=== PATIENT | female | born 1985 | race Caucasian/White ===

== ENCOUNTER → 2020-05-21 11:13 | Outpatient (CLI) | payer OTHER, SELFPAY ==
--- NOTE | ~2020-05-21 | XR_ITS ---
XR wrist LT min 3V DATE: 05/21/2020 11:30 INDICATION: Left wrist generalized pain for several months TECHNIQUE: 4 views COMPARISON: None FINDINGS: No fracture or dislocation, periosteal reaction or bone destruction. Joint spaces are prese rved. No erosive change or chondrocalcinosis. IMPRESSION: Negative Reviewed, dictated and finalized at location A. SERVICE AMBASSADOR IMPRESSION: Negative
== END ==
PROVIDERS: PCP Family Medicine; Visit Provider Family Medicine
DX: M25.532 Pain in left wrist (principal)
CPT/HCPCS: 73110

== ENCOUNTER 2020-06-28 11:10 | Outpatient (NON) | payer OTHER, SELFPAY ==
[2020-06-28 22:42] LABS: SARS-CoV-2 RNA PCR Negative
== END 2020-06-28 11:11 ==
LOC: ANHCOVIDDT 11:11
PROVIDERS: PCP Family Medicine; Visit Provider Family Medicine
DX: Z20.822 Contact with and (suspected) exposure to COVID-19 (principal); B34.9 Viral infection, unspecified
CPT/HCPCS: C9803; U0003; U0005

== ENCOUNTER 2020-09-12 10:46 | Observation (INO) | payer OTHER, SELFPAY ==
--- NOTE | ~2020-09-12 | CT_ITS ---
EXAMINATION: CT abdomen pelvis wo con DATE: 09/12/2020 11:59 INDICATION: Abdomen pain TECHNIQUE: Computed tomography (CT) of the abdomen and pelvis was performed without intravenous contr ast. The dose-length product was 212.09 mGy-cm. Automated exposure control and iterative reconstructi on technique were employed. COMPARISON: None. FINDINGS: Lung bases are unremarkable. Heart size normal. No significant pleural or pericardial effus ion. No significant vascular abnormality. No lymphadenopathy. The liver, spleen, pancreas, adrenal glands and kidneys are unremarkable. No renal stones or hydronep hrosis. Nonobstructive bowel gas pattern. The appendix is not positively visualized. There is no per icecal inflammatory change to suggest appendicitis. No acute osseous abnormality. No free air or free fluid. No abnormal pelvic masses or fluid collections. IMPRESSION: 1. No acute abdominal abnormality. Reviewed, dictated and finalized at location B.
[2020-09-12 10:58] VITALS: BP 117/60; PULSE 87; RESP 18; TEMP 36.4; O2SAT 100
[2020-09-12 11:13] LABS: Basophils Absolute Auto 0.1 K/mm3 (0.0-0.1); Basophils Percent Auto 0.3 % (0.2-1.2); Hematocrit 48.9 % (37.0-47.0); Immature Granulocyte Absolute 0.06 K/mm3 (0.00-0.031); Immature Granulocyte Percent A 0.4 % (0-0.5); Lymphocytes Absolute Auto 0.91 K/mm3 (0.9-3.2); Lymphocytes Percent Auto 5.9 % (18.3-44.2); Mean Corpuscular HGB Conc 34.8 g/dl (32-36); Mean Corpuscular Hemoglobin 32.2 pg (26-34); Mean Corpuscular Volume 92.6 fl (80-100); Monocytes Percent Auto 6.5 % (2.6-8.5); Neutrophils Absolute Auto 13.3 K/mm3 (1.3-6.7); Neutrophils Percent Auto 86.9 % (45.5-73.1); Platelet Count Result 385 k/mm3 (150-375); Red Blood Count 5.28 M/mm3 (4.2-5.4); Red Cell Distribution Width 12.8 % (11.5-14.5); White Blood Count 15.3 K/mm3 (4.5-10.0)
--- NOTE | 2020-09-12 11:15 | ED.ARRPALP ---
HPI - Arrhythmia/Palpitations General Chief Complaint: Nausea/Vomiting/Diarrhea Stated Complaint: N/V/D Time Seen by Provider: 09/12/20 10:56 Source: RN notes reviewed History of Present Illness HPI narrative: Patient presents to emergency department from home for nausea vomiting. Patient states that she has been having persistent nausea and vomiting since approximately 1030 yesterday morning states is associated with abdominal pain described as cramping in the upper abdomen she denies any chest pain shortness of breath diarrhea or any other symptoms. States she had a temperature up to 100.1 at home patient did states she took Motrin this morning Related Data Allergies Allergy/AdvReac Type Severity Reaction Status Date / Time No Known Allergies Allergy Verified 09/12/20 11:06 Review of Systems Review of Systems: Narrative: Gen.: Reports fever denies chills Eyes: Denies eye pain or visual change ENT: Denies congestion Respiratory: Denies shortness of breath or cough CV: Denies chest pain or palpitations GI: See HPI denies burning, urgency, frequency or hematuria Musculoskeletal: Denies back pain or muscle pain Neuro: Denies numbness, tingling, weakness or focal weakness Skin: Denies rash Except as documented, all other systems reviewed and negative [facility] Past Medical History Medical History (Updated 09/12/20 @ 13:40 by Hemanth Wagner DO) Psoriasis Surgical History Surgical History (Updated 09/12/20 @ 13:33 by Anna Deleon PA-C) History of wisdom tooth extraction Family History Family History (Updated 09/12/20 @ 13:34 by Anna Deleon PA-C) Grandparent Family history of malignant neoplasm of breast Family history of malignant neoplasm of ovary Diabetes mellitus Mother Diabetes mellitus Social History Social History (Updated 09/12/20 @ 13:34 by Anna Deleon PA-C) Social History: The patient lives in [place]. She is a smoker. Denies alcohol illicit substance abuse. Exam Narrative: Exam Narrative: APPEARANCE: No acute distress, nontoxic, resting in bed HEENT: Normocephalic, atraumatic, OMM RESPIRATORY: No respiratory distress, clear to auscultation bilaterally with no rhonchi wheezing or rales CARDIOVASCULAR: RRR s murmur ABDOMINAL: Soft nondistended tender palpation epigastric right upper quadrant left lower quadrant no tenderness right lower quadrant left lower quadrant no rebound or guarding MUSCULOSKELETAl: Moves all extremities. No clubbing, cyanosis or edema. NEURO: Awake and alert. Following commands, speech normal, no focal deficits SKIN:: Warm, dry. Normal Color PSYCHIATRIC: Normal affect/mood Course Course Emergency Course: Called discussed with TAMARA Castillo for Dr. Estevez presentation work-up agrees with admission at this time Discussed with patient and family results of workup and diagnosis. Discussed need for admission. Patient and family understand and agree to current treatment plan Vital Signs Vital signs: Vital Signs Temperature 97.6 F 09/12/20 10:58 Pulse Rate 87 09/12/20 10:58 Respiratory Rate 18 09/12/20 10:58 Blood Pressure 117/60 09/12/20 10:58 Pulse Oximetry 100 09/12/20 10:58 Temperature 97.6 F 09/12/20 10:58 Pulse Rate 87 09/12/20 10:58 Respiratory Rate 18 09/12/20 10:58 Blood Pressure 117/60 09/12/20 10:58 Pulse Oximetry 100 09/12/20 10:58 MDM - Arrhythmia/Palpitations Lab Data Result diagrams: 09/12/20 11:07 09/12/20 11:07 Labs: Lab Results 09/12/20 09/12/20 09/12/20 Range/Units 11:07 11:07 11:34 WBC 15.3 H (4.5-10.0) K/mm3 RBC 5.28 (4.2-5.4) M/mm3 Hgb 17.0 H (12.0-15.0) g/dL Hct 48.9 H (37.0-47.0) % MCV 92.6 (80-100) fl MCH 32.2 (26-34) pg MCHC 34.8 (32-36) g/dl RDW 12.8 (11.5-14.5) % Plt Count 385 H (150-375) k/mm3 MPV 9.0 (7.4-10.4) fl Immature Gran % (Auto) 0.4 (0-0.5) % Neut % (Auto) 86.9 H
[2020-09-12 11:25] LABS: Alanine Aminotransferase 18 U/L (4-35); Albumin Level 5.7 g/dL (3.5-5.1); Alkaline Phosphatase 60 U/L (38-126); Anion Gap 20 mmol/L (8-16); Aspartate Amino Transferase 28 U/L (14-36); Bilirubin,Total 0.6 mg/dL (0.2-1.3); Blood Urea Nitrogen 37 mg/dL (7-17); Calcium 10.4 mg/dL (8.4-10.2); Carbon Dioxide 20 mmol/L (22-30); Chloride 99 mmol/L (98-107); Estimated CRCL calculation 32 ml/min; Estimated Glomerular Filt Rate 27; Glucose 127 mg/dL (65-105); Lipase 20 U/L (23-300); Potassium 4.6 mmol/L (3.4-5.0); Sodium 139 mmol/L (137-145)
[2020-09-12] MEDS: FAMOTIDINE 20 MG/2 ML VIAL IV PUSH ×2 (11:36→21:49)
[2020-09-12] MEDS: ONDANSETRON INJ 4 MG/2 ML VIAL IV PUSH (11:41)
[2020-09-12] MEDS: SODIUM CHLORIDE 0.9% IV 1,000 ML 999 ML IV CONT ×2 (11:42→13:43)
[2020-09-12 11:48] LABS: Add Urine Microscopic? YES; Appearance Urine Cloudy (Clear); Bacteria Urine Trace /hpf; Bilirubin Urine Negative (Negative); Blood Urine 2+ (Negative); Color Urine Amber (Yellow); Glucose Urine UA Negative (Negative); Hyaline Casts Urine 50+ /lpf; Ketones Urine Negative (Negative); Leukocyte Esterase Ur Negative LEU/UL (Negative); Mucus Urine Moderate /lpf; Nitrate Urine Negative (Negative); Protein Urine 2+ mg/dL (Negative); RBC Urine 21-50 /hpf (0-2); Specific Grav Ur 1.018 (1.001-1.035); Squamous Epithelial Cell Urine Many /hpf (Few); Urobilinogen Urine Negative mg/dL (<2.0)
[2020-09-12 13:55] VITALS: BP 132/78; PULSE 76; RESP 18; O2SAT 99
--- NOTE | 2020-09-12 14:42 | ADMGEN ---
This patient, Yojana John, was admitted to [facility] Surg Room 313-01. Patient/family oriented to hospital policies and general routines including ID bracelet, bed and alarms, visiting hours, pain management, procedures, bathroom and other care routines, personal items, smoking policy, room service/diet, and visiting hours. Information on how to activate the Rapid Response Team has been discussed. Patient/Family are encouraged to report perceived risks to care and to ask questions if they do not understand what they are told or what they should do.
[2020-09-12 14:45] VITALS: BP 114/66; PULSE 67; RESP 20; TEMP 36.9; O2SAT 100
[2020-09-12] MEDS: SODIUM CHLORIDE 0.9% IV 1,000 ML 125 ML IV CONT ×2 (15:10→21:49)
--- NOTE | 2020-09-12 16:30 | PM.IMHP ---
H&P: HPI History of Present Illness Date/Time: 09/12/20 16:30 Chief Complaint: Nausea, vomiting, diarrhea. Narrative: This is a previously healthy 34-year-old female who presented to the emergency department earlier today via private vehicle from home with complaints of nausea, vomiting, and diarrhea. Yesterday morning, not long after eating breakfast, her stomach started to ?gurgle? followed by profuse, frequent loose stools. Shortly thereafter she developed feelings of indigestion as well as severe nausea and emesis on an hourly basis. Her vomiting and diarrhea have slowed down today, but she continues to be nauseated with dry heaves. She also feels dehydrated and reports diffuse muscle cramps as well as generalized weakness. In the emergency department she was found to be profoundly dehydrated on labs with evidence of acute kidney injury and she is being admitted in this setting. She denies recent travel, sick contacts, and recent antibiotic use. No hematemesis, melena, or hematochezia. No significant NSAID use. At the time my evaluation she feels much better after receiving antiemetics and IV fluids. Review of Systems Review of Systems: Narrative: Twelve systems were reviewed with pertinent positives and negatives as per HPI. It sounds as though she had a vagal response earlier this morning with clamminess, dizziness, nausea, weakness, and lightheadedness. She denies sinus congestion, rhinorrhea, otalgia, and odynophagia. No chest pain or shortness of breath. No cough. Denies dysuria and other UTI symptoms. Last menstrual period was approximately 3 weeks ago. Except as documented, all other systems were reviewed and are negative. [facility] Past Medical History Medical History Psoriasis Surgical History Surgical History History of wisdom tooth extraction Family History Family History Grandparent Family history of malignant neoplasm of ovary Diabetes mellitus Family history of malignant neoplasm of breast Mother Diabetes mellitus Other Heart attack Social History Social History (Updated 09/12/20 @ 18:11 by Anna Deleon PA-C) Social History: The patient lives in [place] with her fiance and their 2 children. 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 Smokes approximately 10 cigarettes per day. Consumes about a 12 pack of beer per week. No illicit substance use. She designates her mother and fijairoe as her surrogate decision makers and wishes to be a full code. Sexual Orientation (if Verbalized by the Patient): Straight or Heterosexual Meds Home Medications and Allergies Home Medications Medication Instructions Recorded Confirmed Type nicotine [Nicoderm CQ] 14 mg TRANSDERMAL DAILY 09/12/20 09/12/20 History terbinafine HCl 250 mg PO DAILY 09/12/20 09/12/20 History triamcinolone acetonide 0.1 applic TOPICAL DAILY 09/12/20 09/12/20 History Allergies Allergy/AdvReac Type Severity Reaction Status Date / Time No Known Allergies Allergy Verified 09/12/20 14:55 Vital Signs Vital Signs - 24 hr 09/12/20 10:58 Temperature 97.6 F Pulse Rate 87 Respiratory Rate 18 Blood Pressure 117/60 Pulse Oximetry 100 Exam Narrative: Exam Narrative: General: Well-developed female sitting up in bed in no acute distress. Weight: 58 kilograms. BMI: 20.0. HEENT: PERRL, EOMI. Sclerae anicteric. Tacky mucous membranes. Neck: Supple. Respiratory: Lungs are clear to auscultation bilaterally. Cardiovascular: Regular rate and rhythm with S1-S2. Gastrointestinal: Abdomen is soft and nondistended with positive bowel sounds. She is slightly tender to palpation in the mid and lower abdomen. No voluntary guarding or rebound tenderness. Skin: Warm and dry. No rash or lesions on limited exam. Extrem
[2020-09-12 18:52] LABS: Anion Gap 11 mmol/L (8-16); Blood Urea Nitrogen 28 mg/dL (7-17); CRP 4.3 mg/dL (<1.0); Calcium 8.7 mg/dL (8.4-10.2); Carbon Dioxide 22 mmol/L (22-30); Chloride 104 mmol/L (98-107); Creatine Kinase 55 U/L (30-135); Estimated CRCL calculation 59 ml/min; Estimated Glomerular Filt Rate 57; Glucose 102 mg/dL (65-105); Potassium 3.5 mmol/L (3.4-5.0); Sodium 137 mmol/L (137-145)
[2020-09-12 21:47] VITALS: BP 109/59; PULSE 74; RESP 18; TEMP 36.7; O2SAT 98
[2020-09-13 05:44] VITALS: BP 103/66; PULSE 66; RESP 18; TEMP 36.4; O2SAT 98
[2020-09-13] MEDS: SODIUM CHLORIDE 0.9% IV 1,000 ML 100 ML IV CONT (05:48)
[2020-09-13 06:09] LABS: Basophils Absolute Auto 0.1 K/mm3 (0.0-0.1); Basophils Percent Auto 0.8 % (0.2-1.2); Eosinophils Absolute Auto 0.2 K/mm3 (0-0.3); Eosinophils Percent Auto 2.7 % (0-4.4); Hematocrit 36.5 % (37.0-47.0); Immature Granulocyte Absolute 0.02 K/mm3 (0.00-0.031); Immature Granulocyte Percent A 0.3 % (0-0.5); Lymphocytes Absolute Auto 2.03 K/mm3 (0.9-3.2); Lymphocytes Percent Auto 27.5 % (18.3-44.2); Mean Corpuscular HGB Conc 32.9 g/dl (32-36); Mean Corpuscular Hemoglobin 31.2 pg (26-34); Mean Corpuscular Volume 94.8 fl (80-100); Mean Platelet Volume 9.3 fl (7.4-10.4); Monocytes Absolute Auto 0.9 K/mm3 (0.1-0.6); Monocytes Percent Auto 11.9 % (2.6-8.5); Neutrophils Absolute Auto 4.2 K/mm3 (1.3-6.7); Neutrophils Percent Auto 56.8 % (45.5-73.1); Platelet Count Result 243 k/mm3 (150-375); Red Blood Count 3.85 M/mm3 (4.2-5.4); White Blood Count 7.4 K/mm3 (4.5-10.0)
[2020-09-13 06:38] LABS: Alanine Aminotransferase 12 U/L (4-35); Albumin Level 3.6 g/dL (3.5-5.1); Alkaline Phosphatase 33 U/L (38-126); Anion Gap 5 mmol/L (8-16); Aspartate Amino Transferase 21 U/L (14-36); Bilirubin,Total 0.2 mg/dL (0.2-1.3); Blood Urea Nitrogen 13 mg/dL (7-17); Calcium 7.9 mg/dL (8.4-10.2); Carbon Dioxide 24 mmol/L (22-30); Chloride 109 mmol/L (98-107); Estimated CRCL calculation 90 ml/min; Estimated Glomerular Filt Rate > 60; Glucose 99 mg/dL (65-105); Potassium 3.8 mmol/L (3.4-5.0); Sodium 138 mmol/L (137-145)
[2020-09-13] MEDS: FAMOTIDINE 20 MG/2 ML VIAL IV PUSH (08:02)
--- NOTE | 2020-09-13 09:19 | PM.DS ---
DS: Admitting Diagnosis Admitting Diagnosis Admitting Diagnosis: Chief Complaint: Nausea, vomiting, diarrhea. DS: Discharge Diagnosis Discharge Diagnosis (1) Acute kidney injury: Code(s): N17.9 - Acute kidney failure, unspecified Status: Acute Assessment and Plan: Due to profound dehydration from volume loss. Continue judicious IV fluid rehydration. Repeat renal function in a.m. (2) Dehydration: Code(s): E86.0 - Dehydration Status: Acute Assessment and Plan: Due to volume loss from vomiting and diarrhea. IV fluid rehydration as detailed above. (3) Viral gastroenteritis: Code(s): A08.4 - Viral intestinal infection, unspecified Status: Acute Assessment and Plan: Symptoms consistent with a probable viral gastroenteritis. Supportive care including IV fluid rehydration antiemetics. DS: Summary Hospital Course Reason for hospitalization: Chief Complaint: Nausea, vomiting, diarrhea. Narrative: This is a previously healthy 34-year-old female who presented to the emergency department earlier today via private vehicle from home with complaints of nausea, vomiting, and diarrhea. Yesterday morning, not long after eating breakfast, her stomach started to ?gurgle? followed by profuse, frequent loose stools. Shortly thereafter she developed feelings of indigestion as well as severe nausea and emesis on an hourly basis. Her vomiting and diarrhea have slowed down today, but she continues to be nauseated with dry heaves. She also feels dehydrated and reports diffuse muscle cramps as well as generalized weakness. In the emergency department she was found to be profoundly dehydrated on labs with evidence of acute kidney injury and she is being admitted in this setting. She denies recent travel, sick contacts, and recent antibiotic use. No hematemesis, melena, or hematochezia. No significant NSAID use. At the time my evaluation she feels much better after receiving antiemetics and IV fluids. Hospital Course: Patient presented with nausea or vomiting and diarrhea symptoms have resolved patient is able to tolerate her diet clinically stable will discharge the patient home today Status at Discharge Functional status at discharge: independent ambulation Overall status at discharge: patient is back to baseline Time Spent with Patient Time attestation: Total time spent providing and/or coordinating discharge services: Patient was seen and examined at the time of the discharge Condition at discharge is stable Code status: Full code. Time spent preparing discharge summary, discharge medications, discussing discharge planning with case management specialist and patient is 35 minutes. Time spent: Less than 30 minutes Exam Narrative: Exam Narrative: Patient is comfortable, NAD HEENT: eyes are clear and none icteric LUNGS:CTA HEART: RR S1S2 ABD: BS+, Soft and nontender Lower extremities: no edema SKIN: nonjaundiced Neuro: grossly intact. DS: Data Data Completed and Pending Labs on day of discharge: Labs from last 24 hours 09/13/20 09/13/20 09/13/20 05:33 05:33 05:33 WBC 7.4 RBC 3.85 L Hgb 12.0 D Hct 36.5 L MCV 94.8 MCH 31.2 MCHC 32.9 RDW 13.0 Plt Count 243 MPV 9.3 Immature Gran % (Auto) 0.3 Neut % (Auto) 56.8 Lymph % (Auto) 27.5 [place] % (Auto) 11.9 H Eos % (Auto) 2.7 Baso % (Auto) 0.8 Lymph # (Auto) 2.03 [place] # (Auto) 0.9 H Eos # (Auto) 0.2 Baso # (Auto) 0.1 Abs Immat Gran (auto) 0.02 Absolute Neuts (auto) 4.2 Absolute Nucleated RBC 0.0 Nucleated RBC % 0.0 Sodium 138 Potassium 3.8 Chloride 109 H Carbon Dioxide 24 Anion Gap 5 L BUN 13 D Creatinine 0.70 Estim Creat Clear Calc 90 Estimated GFR > 60 Glucose 99 Calcium 7.9 L Magnesium 2.0 Total Bilirubin 0.2 AST 21 ALT 12 Alkaline Phosphatase 33 L Total Creatine Kinase C-Reactive Protein To
[2020-09-13 09:34] VITALS: O2SAT 98
== END 2020-09-13 10:29 | disposition home or self-care (01) ==
LOC: ANHED 13:40 → ANH3MEDSUR 13:58
PROVIDERS: Physician Assistant; Admitting Provider Family Medicine; Emergency Provider Emergency Medicine; PCP Family Medicine; Visit Provider Family Medicine
DX: N17.9 Acute kidney failure, unspecified (principal); E86.0 Dehydration; A08.4 Viral intestinal infection, unspecified; R11.2 Nausea with vomiting, unspecified; R19.7 Diarrhea, unspecified; L40.9 Psoriasis, unspecified; F17.210 Nicotine dependence, cigarettes, uncomplicated
CPT/HCPCS: 36415; 74176; 80048; 80053; 81001; 81025; 82550; 83690; 83735; 85025; 86140; 87086; 96361; 96374; 96375; 96376; 99285; G0378; G0379; J0131; J2405; J7030

== ENCOUNTER 2021-04-01 16:33 | Outpatient (CLI) | payer OTHER, SELFPAY ==
--- NOTE | ~2021-04-01 | XR_ITS ---
EXAMINATION: XR chest 2V DATE: 04/01/2021 17:01 INDICATION: Cough with gurgling sounds. Shortness of breath. TECHNIQUE: Frontal and lateral views of the chest were obtained. COMPARISON: CT abdomen and pelvis 09/12/20 FINDINGS: There is mild scarring at the lung apices. No pleural effusion or pneumothorax. The heart s ize is normal. IMPRESSION: 1. Mild scarring at the lung apices. Reviewed, dictated and finalized at location A.
== END 2021-04-01 16:34 | disposition home or self-care (01) ==
LOC: ANHIMG 16:43
PROVIDERS: PCP Family Medicine
DX: R05.9 Cough, unspecified (principal)
CPT/HCPCS: 71046

== ENCOUNTER 2021-07-10 | Day surgery (SDC) | payer OTHER, SELFPAY ==
[2021-07-07 11:09] VITALS: BMI 19.2
--- NOTE | 2021-07-07 11:17 | PC.NURSE ---
Report to the Outpatient Waiting Room, entrance under the green pavilion located off [facility], at time 0600 on date 07/10/21. OR Time: 0730. - You will be asked a series of questions to screen for COVID 19 for your protection. - A mask is required within the hospital. - No visitors are allowed at this time. Preoperative COVID Testing Requirements: No COVID Test needed if: (proof is required; if not received patient will have Rapid Test prior to entry) - Patient has received COVID Vaccine at least 14 days prior to procedure date or - Patient has positive COVID test result within last 90 days of surgery date. COVID Test needed if above criteria is not met Patients may have clear liquids (water, carbonated beverages, clear teas, apple juice) until 3 hours prior to surgery with a maximum of 20 ounces. - No food from midnight until time of surgery Take the following medications with a SIP of water the morning of surgery: NONE Medications to discontinue per physician: VITAMINS/SUPPLEMENTS Date to take last dose: 07/07/21 Please no make-up, nail kinyarwanda, hairspray, perfume, deodorant, or body powder the day of surgery. No jewelry (including any body piercings) or valuables the day of surgery, leave them at home. Please take a shower or bath the night before, or the morning of, surgery with an antibacterial soap. Wear comfortable, loose fitting clothing. - Jewelry must be removed prior to entering the operating room. Rings and piercings that are not removed may be cut off. - The hospital will not accept responsibility for valuables. - Please leave all valuables, including medications, at home the day of surgery. If you are going home after surgery, a licensed patient transportation driver must drive you home. - NO public transportation without another adult. - We recommend that an adult stay with you for 24 hours following discharge. - We also recommend that you do not drive, make important decision, drink alcoholic beverages, or take any drugs that were not prescribed by your health care provider for at least 24 hours after your discharge time. Follow any additional instructions given to you from your surgeon. Telephone instructions given to MEMO CASAREZ and asked if any additional questions and then verbalized understanding. Patient advised to call surgeon office or pre surgery nurse liaison [phone] if any additional questions.
--- NOTE | 2021-07-09 13:46 | P.PNAN_ITS ---
Anes - Initial Pre Proc Eval Procedure: Operation Date: 07/10/21 07:30 Proposed Procedures p Bilateral Breast Augmentation - Spencer Adkins MD Date/Time: 07/09/21 13:46 Surgeon: Spencer Adkins MD Pre Op Diagnosis: micromastia Patient Data Age: 35 Gender: F Height: 1.75 m Weight: 59 kg Allergies Allergy/AdvReac Type Severity Reaction Status Date / Time No Known Allergies Allergy Verified 07/10/21 06:24 Home Medications Medication Instructions Recorded Confirmed Type docusate sodium 100 mg capsule 100 mg PO DAILY #14 cap 06/25/21 07/10/21 Rx ondansetron HCl 4 mg tablet 4 mg PO Q8H #21 tablet 06/25/21 07/10/21 Rx carisoprodol 350 mg tablet 350 mg PO TID PRN #21 tablet 06/27/21 07/10/21 Rx oxycodone-acetaminophen 5 mg-325 1 tablet PO Q6H PRN #30 tablet 06/27/21 07/10/21 Rx mg tablet multivitamin 1 tablet PO DAILY 07/07/21 07/10/21 History Patient hx anesthesia problems: none Family hx anesthesia problems: none Results Review: All pre-operative results and documents have been reviewed as part of the pre-operative evaluation. [facility] Past Medical History Medical History ETOH abuse Psoriasis Smoker Surgical History Surgical History History of wisdom tooth extraction Family History Family History Grandparent Family history of malignant neoplasm of ovary Diabetes mellitus Family history of malignant neoplasm of breast Mother Diabetes mellitus Other Heart attack Social History Social History Social History: The patient lives in [place] with her fiance and their 2 children. 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 Smokes approximately 10 cigarettes per day. Consumes about a 12 pack of beer per week. No illicit substance use. She designates her mother and fiancee as her surrogate decision makers and wishes to be a full code. Years smoked: 16 Smoking status: Current every day smoker Tobacco type: cigarettes Alcohol intake: current Drinks per week: 15 Alcohol use details: BEER Substance use: current Substance use type: marijuana Last use: 07/07/21 Living arrangements: with family Sexual Orientation (if Verbalized by the Patient): Straight or Heterosexual Spiritual care concerns: No Anes - Eval Final PreProcedure Day of Procedure 07/09/21 13:46 Patient weight: normal Heart: regular rate and rhythm Lungs: clear to auscultation and normal air movement Airway: Mallampati scale class II Neurological: alert and oriented Last oral intake: >/= 8 hours ASA classification: II Emergent: no Anesthetic plan: proceed Anesthesia type and monitoring: general LMA Results Review: All pre-operative results and documents have been reviewed as part of the pre-operative evaluation. Informed Consent: The patient's anesthetic plan and its attendant risks and benefits were discussed with the patient/family/POA. Questions were solicited and answers provided to the satisfaction of the patient/family/POA.
[2021-07-10] VITALS (8 sets, daily range): BP systolic 110–118; BP diastolic 71–75; PULSE 79–96; RESP 12–19; TEMP 36.5–36.6; O2SAT 94–100
[2021-07-10] MEDS: LACTATED RINGERS 1,000 ML 30 ML IV CONT ×2 (06:16→08:26)
--- NOTE | 2021-07-10 06:58 | WPDHPUPDATE1 ---
History and Physical Update Update Date/Time: 07/10/21 06:58 History and Physical has been reviewed, including an updated exam of the patient. There are NO changes in the patient's condition. Risks, benefits, and alternatives have been discussed and questions answered. Patient agrees to proceed with procedure.
--- NOTE | 2021-07-10 07:11 | W.PM.PROC2 ---
Procedure Note - Detailed Date of Procedure 07/10/21 Pre-op Diagnosis micromastia Post-op Diagnosis same Procedure Performed Bilateral Augmentation Mammaplasty Surgeon Spencer Adkins MD Anesthesia general Findings Bilateral Stone Eric SoftTouch 340cc Silicone Implants Right - REF# [id number] SN [id number] Left - REF# [id number] SN [id number] Description of Procedure She is here today for bilateral breast augmentation. Previously and again today the risks, benefits, alternatives were discussed in extensive detail. I wanted her to be very realistic about the risks involved as well as expectations. We discussed aftercare and what to monitor for. Made sure answered all of her questions to her satisfaction today and consent was obtained. Marked in the preoperative holding area with their verification. The patient was taken to the operating room placed supine on the operating table. Anesthesia was provided by anesthesiology. A surgical time-out was taken. We cleansed the skin and 1% lidocaine and 0.25% Marcaine with epinephrine was used anesthetize as a field block. She was prepped and draped in a standard sterile fashion. Tegaderm nipple Burton were placed. A 15 blade used to make an incision along the inframammary fold. Dissection was continued at 45 degree angle until the chest wall as identified. I incised the pectoralis major along its inferior border and completely released the inferior border leaving the medial border intact. I created a subpectoral pocket in the appropriate dimensions based on our preoperative planning for the implant. I then copiously irrigated with saline solution and verified a strict hemostasis. Next the use a triple antibiotic and Betadine containing solution to irrigate the pocket. I washed my gloves with the triple antibiotic and Betadine solution. We washed the implant immediately upon opening it with this solution and only opened it when we needed it. I used implant funnel and no-touch technique. The implant was introduced into the pocket using the funnel. Having verified positioning of the implant this was closed using 2-0 Vicryl followed by 3-0 Monocryl in a running subcuticular 4-0 Monocryl followed by tissue glue. Fluffs and surgical bra were placed. Patient was awoke and taken to PACU without difficulty. All instrument sponge counts were correct at the end of the case. Estimated Blood Loss 20 Drains No Packing No Pathology none sent Complications No immediate complications Condition stable Disposition PACU
[2021-07-10] MEDS: TRANEXAMIC ACID 1,000MG/ISO100 1,000 MG/100 ML BAG 200 MG IVPB (07:26)
[2021-07-10] MEDS: LIDO 1%/EPINEPHRINE 1:100,000 50 ML VIAL 30 ML INFILTRATE (07:28)
[2021-07-10] MEDS: ceFAZolin 2 GM/D5W 50 ML 2 GM/50 ML BAG IVPB (07:30)
[2021-07-10] MEDS: fentaNYL CITRATE INJ (*CRX) 100 MCG/2 ML VIAL 25 MCG IV PUSH ×4 (08:50→09:07)
[2021-07-10] MEDS: BUPIVACAINE HCL 0.25% PF 30 ML VIAL INFILTRATE (09:33)
== END 2021-07-10 10:21 | disposition home or self-care (01) ==
PROVIDERS: Visit Provider Surgery Plastic and Reconstructive Surgery
PROC: (CPT 19325; principal; 2021-07-10 07:30)
DX: Z41.1 Encounter for cosmetic surgery (principal); N64.82 Hypoplasia of breast; F17.210 Nicotine dependence, cigarettes, uncomplicated; F12.90 Cannabis use, unspecified, uncomplicated
CPT/HCPCS: 19325; J0690; J1100; J1170; J1580; J2250; J2405; J2704; J3010; J7120

== ENCOUNTER 2022-05-09 10:11 | Emergency (ER) | payer BC, SELFPAY ==
[2022-05-09 11:22] VITALS: BP 116/77; PULSE 80; RESP 18; TEMP 36.7; O2SAT 100
--- NOTE | 2022-05-09 12:06 | ED.URI ---
HPI - URI/Sore Throat General Chief Complaint: Upper Respiratory Infection Stated Complaint: cough Time Seen by Provider: 05/09/22 11:59 Source: patient Mode of arrival: ambulatory Limitations: no limitations History of Present Illness HPI Narrative: Patient presents today with a 2 to three-week history of dry cough has been worse over the past week. Cough is keeping her awake at night. Denies any fever or shortness of breath. At onset of symptoms she did have some cold symptoms, but these have since resolved. She has tried Mucinex, Sudafed, and an albuterol inhaler without relief. She does smoke cigarettes. Related Data Home Medications Medication Instructions Recorded Confirmed multivitamin 1 tablet PO DAILY 07/07/21 07/10/21 Allergies Allergy/AdvReac Type Severity Reaction Status Date / Time No Known Allergies Allergy Verified 08/25/21 15:00 Review of Systems Review of Systems: CONSTITUTIONAL: Denies body aches, fever, chills, or sweats. EYES: Denies visual changes, redness, or discharge. ENT: Denies rhinorrhea, congestion, sore throat, or otalgia. CARDIOVASCULAR: Denies chest pain, palpitations, or edema. RESPIRATORY: Denies dyspnea.+ Cough GASTROINTESTINAL: Denies abdominal pain, nausea, vomiting, or diarrhea. GENITOURINARY: Denies dysuria or hematuria. SKIN: Denies rash, itching, or wounds. MUSCULOSKELETAL: Denies back pain, joint pain, or myalgia. NEUROLOGIC: Denies headache, numbness, tingling, or weakness. PSYCH: Denies depression or anxiety. [facility] Past Medical History Medical History ETOH abuse Psoriasis Smoker Surgical History Surgical History History of wisdom tooth extraction Family History Family History Grandparent Family history of malignant neoplasm of ovary Diabetes mellitus Family history of malignant neoplasm of breast Mother Diabetes mellitus Other Heart attack Social History Social History Social History: The patient lives in [place] with her fiance and their 2 children. 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 Smokes approximately 10 cigarettes per day. Consumes about a 12 pack of beer per week. No illicit substance use. She designates her mother and deane as her surrogate decision makers and wishes to be a full code. Years smoked: 16 Smoking status: Current every day smoker Tobacco type: cigarettes Alcohol intake: current Drinks per week: 15 Alcohol use details: BEER Substance use: current Substance use type: marijuana Last use: 07/07/21 Sexual Orientation (if Verbalized by the Patient): Straight or Heterosexual Spiritual care concerns: No Comments At time of signature, I have reviewed and agree with nursing past medical, surgical, social and family history unless otherwise noted. Please see nursing chart for further information. There is no relevant family history pertinent to the presenting complaint Exam Narrative: GENERAL: mildly ill-appearing, well-nourished, and in no acute distress. HEAD: Normocephalic, atraumatic. EYES: EOMI. No redness or drainage. Conjunctivae normal. ENT: Mucous membranes pink and moist. Nares clear. No rhinorrhea. TMs normal bilaterally. Throat normal. Uvula midline. NECK: Normal AROM. Supple. No lymphadenopathy. CHEST: No respiratory distress. inspiratory wheeze in the left upper and lower lobes, otherwise clear HEART: Regular rate and rhythm. No murmur appreciated. Normal peripheral pulses. EXTREMITIES: Normal range of motion. No edema. SKIN: Warm, dry, no rash. Capillary refill normal. Normal skin turgor. NEURO: No focal deficits. Alert and oriented x3. Gait steady. PSYCH: Normal affect. No signs of depression or anxiety. Course Course Level of Care: Express Care Vis
== END 2022-05-09 12:17 | disposition home or self-care (01) ==
PROVIDERS: Emergency Provider Nurse Practitioner
DX: J40 Bronchitis, not specified as acute or chronic (principal); F17.210 Nicotine dependence, cigarettes, uncomplicated
CPT/HCPCS: 99213; G0463

== ENCOUNTER 2023-07-30 06:32 | Inpatient (IN) | payer BC, SELFPAY ==
[2023-07-30] VITALS (132 sets, daily range): BP systolic 80–130; BP diastolic 41–105; PULSE 71–278; RESP 20; TEMP 36.2–36.9; O2SAT 97–100; BMI 23.8
--- NOTE | 2023-07-30 07:18 | LDADM ---
This patient, Yojana John, was admitted to Labor/Delivery/Recovery 107 on 07/30/23 at 06:32. Plans for labor, pain management and were discussed with patient. Patient/family oriented to hospital policies and general routines including ID bracelet, bed and alarms, visiting hours, pain management, procedures, bathroom and other care routines, personal items, smoking policy, room service/diet and guest tray routines, infant security routines, and visiting hours. Patient/Family are encouraged to report perceived risks to care and to ask questions if they do not understand what they are told or what they should do. See OBIX for further documentation.
[2023-07-30] MEDS: OXYTOCIN 30 UNITS/NS 500 ML 30 UNITS/500 ML BAG IV CONT (07:22)
[2023-07-30] MEDS: LACTATED RINGERS 1,000 ML 125 ML IV CONT ×3 (07:22→11:51)
[2023-07-30 07:24] LABS: Basophils Absolute Auto 0.1 K/mm3 (0.0-0.1); Eosinophils Absolute Auto 0.4 K/mm3 (0-0.3); Eosinophils Percent Auto 3.8 % (0-4.4); Hematocrit 41.4 % (37.0-47.0); Hemoglobin 13.7 g/dL (12.0-15.0); Immature Granulocyte Absolute 0.07 K/mm3 (0.00-0.031); Immature Granulocyte Percent A 0.7 % (0-0.5); Lymphocytes Absolute Auto 2.26 K/mm3 (0.9-3.2); Lymphocytes Percent Auto 22.1 % (18.3-44.2); Mean Corpuscular HGB Conc 33.1 g/dl (32-36); Mean Corpuscular Hemoglobin 31.9 pg (26-34); Mean Corpuscular Volume 96.3 fl (80-100); Mean Platelet Volume 10.2 fl (7.4-10.4); Monocytes Absolute Auto 0.7 K/mm3 (0.1-0.6); Monocytes Percent Auto 7.2 % (2.6-8.5); Neutrophils Absolute Auto 6.7 K/mm3 (1.3-6.7); Neutrophils Percent Auto 65.2 % (45.5-73.1); Platelet Count Result 278 k/mm3 (150-375); Red Cell Distribution Width 13.9 % (11.5-14.5); White Blood Count 10.2 K/mm3 (4.5-10.0)
--- NOTE | 2023-07-30 09:06 | PM.IMHP ---
H&P: HPI History of Present Illness Date/Time: 07/30/23 09:06 Chief Complaint: EIL Narrative: Patient is a 37yo who presents for elective induction of labor. has been uncomplicated. No contractions, LOF, VB. Good movement. Review of Systems Review of Systems: All systems reviewed & are unremarkable except as noted in HPI and below PMFSH Past Medical History Medical History ETOH abuse Psoriasis Smoker Surgical History Surgical History History of wisdom tooth extraction Family History Family History Grandparent Family history of malignant neoplasm of ovary Diabetes mellitus Family history of malignant neoplasm of breast Mother Diabetes mellitus Other Heart attack Social History Social History Social History: The patient lives in [place] with her dean and their 2 children. 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 Smokes approximately 10 cigarettes per day. Consumes about a 12 pack of beer per week. No illicit substance use. She designates her mother and deane as her surrogate decision makers and wishes to be a full code. Years smoked: 16 Smoking status: Current every day smoker Tobacco type: cigarettes Second hand tobacco smoke exposure: Yes Alcohol intake: current Drinks per week: 15 Alcohol use details: BEER Substance use: never Substance use type: marijuana Last use: 07/07/21 Do You Feel Safe in your Home?: Yes Lack of Transportation: No Lack of Food: Never True Current Housing: I Have Housing Concerned About Future Housing: No Difficulty Paying Gas/Electric Bills: No Difficulty Paying for Meds: No Currently Unemployed: No Education: Don't Know Difficulty w/ Childcare or Family Care: No Living arrangements: with family Sexual Orientation (if Verbalized by the Patient): Straight or Heterosexual Spiritual care concerns: No Meds Home Medications and Allergies Home Medications Medication Instructions Recorded Confirmed Type multivitamin 1 tablet PO DAILY 07/07/21 07/30/23 History Allergies Allergy/AdvReac Type Severity Reaction Status Date / Time No Known Allergies Allergy Verified 08/25/21 15:00 Vital Signs Vital Signs - 24 hr 07/30/23 06:58 07/30/23 07:01 07/30/23 07:15 Temperature Pulse Rate 89 100 95 Blood Pressure 121/67 116/78 116/70 Oxygen Delivery 07/30/23 07:00 07/30/23 07:30 07/30/23 07:46 Temperature 98.4 F Pulse Rate 94 88 Blood Pressure 113/74 118/72 Oxygen Delivery 07/30/23 08:01 07/30/23 08:15 07/30/23 08:46 Temperature Pulse Rate 81 93 83 Blood Pressure 114/74 115/76 119/70 Oxygen Delivery 07/30/23 09:01 07/30/23 07:16 Temperature Pulse Rate 91 Blood Pressure 125/78 Oxygen Delivery Room Air Exam Const: General: comfortable and no acute distress HENMT: Mouth: Yes moist mucous membranes Eyes: General: appearance normal, both eyes and all related structures Resp: Effort & Inspection: normal respiratory effort Cardio: Rate: regular rate Skin: General skin exam: normal color Extrem: General: normal to inspection Psych: Mental Status: mental status grossly normal H&P: Results Labs Labs: Short CBC 07/30/23 Range/Units 06:42 WBC 10.2 H (4.5-10.0) K/mm3 Hgb 13.7 (12.0-15.0) g/dL Hct 41.4 (37.0-47.0) % Plt Count 278 (150-375) k/mm3 Assessment and Plan Assessment and plan (1) Encounter for elective induction of labor: Code(s): Z34.90 - Encounter for supervision of normal , unspecified, unspecified trimester Status: Acute Plan EIL per pitocin protocol; AROM of clear fluid at 0835; SVE 4/80/-2
--- NOTE | 2023-07-30 09:23 | WPDANESEPPF ---
Anes - Initial Pre Proc Eval Procedure: labor epidural Date/Time: 07/30/23 09:23 Surgeon: Sis Blake MD Pre Op Diagnosis: labor pain Pre Op Diagnosis: IOL Patient Data Age: 37 Gender: F Height: 1.75 m Weight: 73 kg Last Vital Signs Temp 36.9 C 07/30/23 07:00 Pulse 91 07/30/23 09:16 BP 130/71 07/30/23 09:16 Pulse Ox 98 07/30/23 09:17 O2 Del Method Room Air 07/30/23 07:16 Allergies Allergy/AdvReac Type Severity Reaction Status Date / Time No Known Allergies Allergy Verified 08/25/21 15:00 Home Medications Medication Instructions Recorded Confirmed Type multivitamin 1 tablet PO DAILY 07/07/21 07/30/23 History Laboratory Tests 07/30/23 06:42 WBC 10.2 H K/mm3 (4.5-10.0) RBC 4.30 M/mm3 (4.2-5.4) Hgb 13.7 g/dL (12.0-15.0) Hct 41.4 % (37.0-47.0) MCV 96.3 fl (80-100) MCH 31.9 pg (26-34) MCHC 33.1 g/dl (32-36) RDW 13.9 % (11.5-14.5) Plt Count 278 k/mm3 (150-375) MPV 10.2 fl (7.4-10.4) Immature Gran % (Auto) 0.7 H % (0-0.5) Neut % (Auto) 65.2 % (45.5-73.1) Lymph % (Auto) 22.1 % (18.3-44.2) Morgan % (Auto) 7.2 % (2.6-8.5) Eos % (Auto) 3.8 % (0-4.4) Baso % (Auto) 1.0 % (0.2-1.2) Lymph # (Auto) 2.26 K/mm3 (0.9-3.2) Morgan # (Auto) 0.7 H K/mm3 (0.1-0.6) Eos # (Auto) 0.4 H K/mm3 (0-0.3) Baso # (Auto) 0.1 K/mm3 (0.0-0.1) Abs Immat Gran (auto) 0.07 H K/mm3 (0.00-0.031) Absolute Neuts (auto) 6.7 K/mm3 (1.3-6.7) Absolute Nucleated RBC 0.0 K/mm3 (0.0-0.012) Nucleated RBC % 0.0 % (0.0-0.2) RPR Pending Blood Type A Positive Antibody Screen Negative : gestational age (JUAN J 07/29/23) Patient hx anesthesia problems: none Family hx anesthesia problems: none Results Review: All pre-operative results and documents have been reviewed as part of the pre-operative evaluation. [facility] Past Medical History Medical History ETOH abuse Psoriasis Smoker Surgical History Surgical History History of wisdom tooth extraction Family History Family History Grandparent Family history of malignant neoplasm of ovary Diabetes mellitus Family history of malignant neoplasm of breast Mother Diabetes mellitus Other Heart attack Social History Social History Social History: The patient lives in [place] with her dean and their 2 children. 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 Smokes approximately 10 cigarettes per day. Consumes about a 12 pack of beer per week. No illicit substance use. She designates her mother and fiancee as her surrogate decision makers and wishes to be a full code. Years smoked: 16 Smoking status: Current every day smoker Tobacco type: cigarettes Second hand tobacco smoke exposure: Yes Alcohol intake: current Drinks per week: 15 Alcohol use details: BEER Substance use: never Substance use type: marijuana Last use: 07/07/21 Do You Feel Safe in your Home?: Yes Lack of Transportation: No Lack of Food: Never True Current Housing: I Have Housing Concerned About Future Housing: No Difficulty Paying Gas/Electric Bills: No Difficulty Paying for Meds: No Currently Unemployed: No Education: Don't Know Difficulty w/ Childcare or Family Care: No Living arrangements: with family Sexual Orientation (if Verbalized by the Patient): Straight or Heterosexual Spiritual care concerns: No Anes - Eval Final PreProcedure Day of Procedure 07/30/23 09:23 Neurological: alert and oriented ASA classification: II Emergent: no Anesthetic plan: proceed Anesthesia type and monitoring: regional epidural Results Review: All pre-operative results and documents quintana
--- NOTE | 2023-07-30 14:50 | P.PCNOB_ITS ---
OB - Vaginal Delivery Note Procedure Delivery date: 07/30/23 Intrapartal Events: Decelerations Delivery augmentation: Rupture of Membranes and Pitocin Delivery monitor: External FHT and Internal FHT Route of delivery: Episiotomy description: None Laceration Description: Perineal - 1st Degree Delivery repair: vicryl Specimen: No Quantitative Blood Loss (ml): 250 Anesthesia type: Epidural Disposition: Floor [place] Baby Date of : 07/30/23 Time of : 14:39 Weeks of gestation at delivery: 40 gender: Male presentation: vertex position: Left Occiput Anterior Placenta delivery description: Spontaneous Cord Vessel Description: 3 Vessels score one minute: 9 score five minutes: 9 Narrative: mother and baby skin to skin in stable condition
[2023-07-30] MEDS: ONDANSETRON INJ 4 MG/2 ML VIAL IV PUSH (15:16)
[2023-07-30] MEDS: OXYTOCIN 30 UNITS/NS 500 ML 30 UNITS/500 ML BAG 125 UNITS IV CONT (15:16)
[2023-07-30 16:55] LABS: Rapid Plasma Reagin Non-Reactive (NonReactive)
--- NOTE | 2023-07-30 17:46 | OBPPTRN ---
Patient transferred to post room #281 via wheelchair. Support person present. Oriented to unit, room, information board, rooming in, admission packet and security measures. Patient verbalizes understanding.
[2023-07-30] MEDS: IBUPROFEN 600 MG TABLET PO (18:23)
[2023-07-31] MEDS: IBUPROFEN 600 MG TABLET PO ×2 (00:12→08:02)
[2023-07-31 00:14] VITALS: BP 109/60; PULSE 83; RESP 18; TEMP 36.6; O2SAT 96
[2023-07-31 05:32] LABS: Hematocrit 34.8 % (37.0-47.0); Hemoglobin 11.1 g/dL (12.0-15.0)
[2023-07-31 07:25] VITALS: BP 106/65; PULSE 60; RESP 16; TEMP 36.6; O2SAT 97
--- NOTE | 2023-07-31 08:03 | WPDANLDPN2 ---
Anes-Prog Note L&D Date/Time: 07/31/23 08:03 Comfortable throughout: labor and delivery Neuraxial method: epidural Epidural/Spinal procedure site: clean & non-tender Neuro status: Neuro function grossly intact. Cardiovascular status: normal Respiratory status: normal Airway patency: baseline Mental status: baseline Post-Op hydration status: normal Vital Signs: Last Vital Signs Temp 36.6 C 07/31/23 00:14 Pulse 83 07/31/23 00:14 Resp 18 07/31/23 00:14 BP 109/60 07/31/23 00:14 Pulse Ox 96 07/31/23 00:14 O2 Del Method Room Air 07/30/23 07:16 Pain score (VAS): 1/10 I/O: Intake & Output 07/30/23 07/31/23 07/31/23 23:59 07:59 15:59 Output Total 150 Balance -150 Post-procedural complaints: none Patient feedback: Patient satisfied with anesthetic care.
[2023-07-31] MEDS: MULTIVIT/MIN/PREN/FOL AC/IRON TABLET 1 TAB PO (08:04)
[2023-07-31] MEDS: LANOLIN (LANSINOH) 7.5 GM CREAM 1 APPLIC TOPICAL (08:07)
--- NOTE | 2023-07-31 08:47 | PM.OBPNVD ---
OB - PN: Subj Subjective Date/time seen: 07/31/23 08:47 Interval history: pp day 1 doing well desires d/c home OB - PN: Obj Data Labs 07/31/23 04:44 Labs: Laboratory Results - last 24 hr 07/30/23 07/31/23 06:42 04:44 Hgb 11.1 L Hct 34.8 L RPR Non-reactive OB - PN A/P Plan day: 1 Plan: routine care and discharge home Time Spent With Patient Time: Total time spent is greater than 50% in coordination of care (as documented) at patient's floor/unit and/or counseling patient: Review of Systems Review of Systems: All systems reviewed & are unremarkable except as noted in HPI and below Exam Const: General: cooperative and healthy appearing Resp: Effort & Inspection: normal respiratory effort Cardio: Rate: regular rate Back/Spine/Pelvis: Back: no CVA tenderness Skin: General skin exam: normal color
--- NOTE | 2023-07-31 08:50 | P.DS_ITS ---
DS: Admitting Diagnosis Discharge Date 07/31/23 Admitting Diagnosis IOL DS: Discharge Diagnosis Discharge Diagnosis (1) Vaginal delivery: Code(s): O80 - Encounter for full-term uncomplicated delivery Status: Acute OB - DS: Summary OB Procedures : None OB Procedures Intrapartum: Spontaneous Vag Delivery OB Procedures: : None Peripartum Data Laceration Description: Perineal - 1st Degree Episiotomy description: None Time Spent with Patient Time attestation: Total time spent providing and/or coordinating discharge services: DS: Data Data Completed and Pending Labs on day of discharge: Labs from last 24 hours 07/31/23 07/30/23 04:44 06:42 Hgb 11.1 L Hct 34.8 L RPR Non-reactive Discharge Plan Discharge Attending physician on discharge: Sis Blake Discharging Clinician: Annabelle Mercedes Patient Disposition: Home, Self-Care Activity: pelvic rest Diet: regular Patient Instructions: Antibiotic Form Stand Alone Forms: General Discharge Information Follow-up/Referrals: Annabelle Mercedes CNM [Certified Nurse Supervisor [employer]] - 4 Weeks Discharge Medications: New ibuprofen 600 mg Tablet 600 mg PO Q6H PRN (Reason: Cramping) Qty: 30 0RF Continued multivitamin Tablet 1 tablet PO DAILY Date of admission: 07/30/23 06:32 Primary Care Provider: PHYSICIAN,CLOTH CALENDER Admitting Provider: Sis Blake Attending physician on admission: Sis Blake Condition: Stable
--- NOTE | 2023-07-31 17:12 | PC.NURSE ---
Patient's car seat was at discharge; car seat was given to patient from here.
--- NOTE | 2023-07-31 17:12 | PC.NURSE ---
Patient was given the opportunity to view the discharge video Mother & Baby Care, The First Two Weeks and to ask questions. Patient declined viewing the video and has been given the mother/baby guide for home reference.
--- NOTE | 2023-07-31 22:07 | PC.NURSE ---
07/31/2023 at 1900. Patient complaining of pain and requesting pain relief. Motrin 600 mg given at this time for a pain of 6. [place] Arzate RN
[2023-08-02 15:53] VITALS: BP 117/70; PULSE 79; RESP 18; TEMP 36.6; O2SAT 97
== END 2023-07-31 19:02 | disposition home or self-care (01) | DRG 807 ==
LOC: ANHLDR 06:35 → ANHOB2 17:52
PROVIDERS: Advanced Practice Midwife; Admitting Provider Obstetrics & Gynecology; Visit Provider Obstetrics & Gynecology
DX: O70.0 First degree perineal laceration during delivery (principal); Z37.0 Single live birth; Z3A.40 40 weeks gestation of pregnancy; Z23 Encounter for immunization; O36.8330 Maternal care for abnormalities of the fetal heart rate or rhythm, third trimester, not applicable or unspecified
CPT/HCPCS: 36415; 85014; 85018; 85025; 86592; 86850; 86900; 86901; 90471; 90686; A9270; G0008; J2405; J2590; J7120

== ENCOUNTER 2024-06-27 11:09 | Emergency (ER) | payer OTHER, SELFPAY ==
--- NOTE | ~2024-06-27 | XR_ITS ---
EXAMINATION: XR chest 2V DATE: 06/27/2024 11:38 INDICATION: Productive cough. TECHNIQUE: Frontal and lateral views of the chest were obtained. COMPARISON: Chest 2 views 04/01/2021, CT abdomen and pelvis 09/12/2020 FINDINGS: There is mild scarring at the lung apices. There is no pneumonia, pleural effusion, or pneu mothorax. The heart size is normal. IMPRESSION: 1. Stable mild scarring at the lung apices. Reviewed, dictated and finalized at location A. [employer]
--- NOTE | 2024-06-27 11:18 | ED.URI ---
HPI - URI/Sore Throat General Chief Complaint: Upper Respiratory Infection Stated Complaint: cough,congestion hx:pneumonia 4 wks ago Time Seen by Provider: 06/27/24 11:19 Source: patient, RN notes reviewed and old records reviewed Mode of arrival: ambulatory Limitations: no limitations History of Present Illness HPI Narrative: 8-year-old female presents to the [facility] with complaints of cough congestion. Was diagnosed with pneumonia on June 02 through x-ray at her primary care provider. Was prescribed albuterol, Z-Jono and cefdinir. Patient is concerned that she might still pneumonia. Denies any fevers, chest pain. States that she has been using her inhaler 1-2 times daily Related Data Home Medications ?Medication ?Instructions ?Recorded ?Confirmed ?Last Taken ?Type multivitamin 1 tablet PO DAILY 07/07/21 07/30/23 07/03/23 12:00 History albuterol sulfate 90 mcg/actuation inhalation 06/27/24 Unknown History aerosol inhaler Allergies Allergy/AdvReac Type Severity Reaction Status Date / Time No Known Allergies Allergy Verified 06/27/24 11:25 Review of Systems Review of Systems: All systems reviewed & are unremarkable except as noted in HPI and below Constitutional: Constitutional: Reports no additional constitutional complaints ENT: Reports system reviewed and no additional complaints, except as documented Cardiovascular: Cardiovascular: Reports no additional cardiovascular complaints, Denies chest pain and Denies dyspnea Respiratory: Respiratory: Reports as per HPI, Reports chest congestion, Reports cough and Denies dyspnea Musculoskeletal: Musculoskeletal: Reports no additional musculoskeletal complaints Integumentary/Breasts: Skin/Breast: Reports system reviewed and no additional complaints, except as docu PMFSH Past Medical History Medical History ETOH abuse Smoker Psoriasis Surgical History Surgical History History of wisdom tooth extraction Family History Family History Grandparent Family history of malignant neoplasm of ovary Diabetes mellitus Family history of malignant neoplasm of breast Mother Diabetes mellitus Other Heart attack Social History Social History Social History: The patient lives in [place] with her fiance and their 2 children. 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 Smokes approximately 10 cigarettes per day. Consumes about a 12 pack of beer per week. No illicit substance use. She designates her mother and bob as her surrogate decision makers and wishes to be a full code. Years smoked: 16 Smoking status: Current every day smoker Tobacco type: cigarettes Second hand tobacco smoke exposure: Yes Alcohol intake: current Drinks per week: 15 Alcohol use details: BEER Substance use: never Substance use type: marijuana Last use: 07/07/21 Do You Feel Safe in your Home?: Yes Lack of Transportation: No Lack of Food: Never True Current Housing: I Have Housing Concerned About Future Housing: No Difficulty Paying Gas/Electric Bills: No Difficulty Paying for Meds: No Currently Unemployed: No Education: Don't Know Difficulty w/ Childcare or Family Care: No Living arrangements: with family Sexual Orientation (if Verbalized by the Patient): Straight or Heterosexual Spiritual care concerns: No Comments At the time of my signature, I reviewed and agree with the nursing past medical, surgical, social, and family history. There is no relevant family history pertinent to the patient complaint. Exam Const: General: cooperative, healthy appearing, comfortable, no acute distress, well developed, alert and well nourished Nutritional Appearance: well nourished Orientation/consciousness: patient oriented x3 Limitations: no limitations HENMT: Head: normal to inspection Eyes: General: appearance normal, both eyes and all related structures Alignment and Position: alignment normal Neck: Neck: normal visual inspection, full ROM, no lymphadenopathy and no meningeal signs Chest: Chest palpation & inspection: normal inspection of the chest Resp: Effort & Inspection: normal respiratory effort and able to speak in complete sentences Auscultation: no crackles, no rales, no rhonchi and wheezes expiratory wheezes and scattered wheezes Cardio: Rate: regular rate Skin: General skin exam: normal color and no rashes or lesions noted Neuro: General: patient oriented x3, gait normal, moves all extremities and no meningeal signs Cognition (Neuro): normal cognition Speech: normal speech Gait exam (Neuro): Normal gait present Extrem: General: normal to inspection, full ROM, capillary refill normal and normal gait Psych: Appearance: grossly normal and well kempt Mental Status: mental status grossly normal Speech and movement: Normal speech and movement present and Clear speech present Affect: normal affect Attitude: cooperative Course Course Level of Care: Express Care Visit Vital Signs Vital signs: Vital Signs Temperature 97.9 F 06/27/24 11:20 Pulse Rate 91 06/27/24 11:20 Respiratory Rate 16 06/27/24 11:20 Blood Pressure 109/71 06/27/24 11:20 Pulse Oximetry 98 06/27/24 11:20 Oxygen Delivery Room Air 06/27/24 11:20 Temperature 97.9 F 06/27/24 11:20 Pulse Rate 91 06/27/24 11:20 Respiratory Rate 16 06/27/24 11:20 Blood Pressure 109/71 06/27/24 11:20 Pulse Oximetry 98 06/27/24 11:20 Oxygen Delivery Room Air 06/27/24 11:20 Reviewed MDM - URI/Sore Throat MDM Narrative Medical decision making narrative: Patient sitting comfortably in exam room. Nontoxic, vitals stable. Patient in no acute distress. Patient diagnosed with pneumonia on 05 June, completed antibiotics. Discussed with patient that the cough post pneumonia can last for several weeks. Discussed doing prednisone, more Frequent use of her albuterol. Importance of following up Patient appropriate for outpatient treatment follow-up Discharge instructions reviewed with patient, as well as provided in writing per nursing staff. The instructions also include specific and strict return/GO TO THE ER as well as f/u information. All questions have been answered, and the patient deny any further questions with discharge and discharge plan. Some parts of this dictation were generated by voice recognition software and may contain typographical and/or grammatical inaccuracies. Differential Diagnosis Differential diagnosis: Likely upper respiratory infection, otitis media, sinusitis, viral infection and bronchitis Imaging Data Radiologist's impression: EXAMINATION: XR chest 2V DATE: 06/27/2024 11:38 INDICATION: Productive cough. TECHNIQUE: Frontal and lateral views of the chest were obtained. COMPARISON: Chest 2 views 04/01/2021, CT abdomen and pelvis 09/12/2020 FINDINGS: There is mild scarring at the lung apices. There is no pneumonia, pleural effusion, or pneumothorax. The heart size is normal. IMPRESSION: 1. Stable mild scarring at the lung apices. Critical Care Time Critical Care Time Critical Care Time: No Discharge Plan Discharge Clinical Impression: Bronchitis, Smoker, History of pneumonia Patient Disposition: Home, Self-Care Condition: Stable Instructions: Antibiotic Form, Acute Bronchitis (ED) Additional Instructions: It is very important to treat your symptoms. Drink plenty of water, Gatorade, Pedialyte, ice pops or Jell-O. -Alternate Tylenol and Motrin per package directions for fever or pain. You can alternate every 4 hours -Antihistamine medication such as Zyrtec/Claritin/Alia during the day can help improve symptoms. -doing daily nasal irrigations can help relieve pressure your sinuses. Things like a Neti pot -Use Flonase twice a day for 5 days then daily to help reduce the inflammation and dry up your sinuses. -You can also use Mucinex. Be sure to drink plenty of water with this medication at least 8 ounces with every dose and it is important to drink 8 to 10 glasses of water per day. Water is a natural decongestant -Eat and drink things that are easy to swallow, like tea or soup, or popsicles. -Oral rinses such as: Salt water gargles and/or may use topical anesthetic (eg. Chloraseptic spray) or lozenges to relieve dryness or throat pain). -Frequent hand washing or hand road contractor is one of the best ways to prevent spread of infection. -Using a vaporizer or humidifier at night will also help thin secretions and help with coughing up phlegm. -Follow up with primary care provider in 7-10 days if condition is not improving - For new or worsening symptoms go directly to the nearest ER Patient Language: Bahamian Prescriptions: New prednisone 20 mg tablet See Rx Instructions .Route .COMPLEX Qty: 9 0RF Rx Instructions: Take 40 mg daily for 3 days, 20 mg daily for 3 days No Action albuterol sulfate 90 mcg/actuation HFA aerosol inhaler INHALATION multivitamin Tablet 1 tablet PO DAILY Follow-up/Referrals: Lary,DO Timo [Primary Care Provider] - Stand Alone Forms: Work/School Release IP Time of Disposition: 11:59
[2024-06-27 11:20] VITALS: BP 109/71; PULSE 91; RESP 16; TEMP 36.6; O2SAT 98
== END 2024-06-27 12:05 | disposition home or self-care (01) ==
PROVIDERS: Emergency Provider Nurse Practitioner; PCP Student in an Organized Health Care Education/Training Program
DX: J40 Bronchitis, not specified as acute or chronic (principal); F17.210 Nicotine dependence, cigarettes, uncomplicated; Z87.01 Personal history of pneumonia (recurrent); L40.9 Psoriasis, unspecified
CPT/HCPCS: 71046; 99213; G0463